=== PATIENT | male | born 1960 | race Caucasian/White ===

== ENCOUNTER 2018-02-18 06:26 | Emergency (ER) | payer BC, OTHER ==
[~2018-02-18] VITALS: Ht 170.2 cm; Wt 108.9 kg
[2018-02-18] MEDS ORDERED: DECADRON IH STA (06:49)
[2018-02-18] MEDS ORDERED: SOLU-MEDROL IV STA (06:49)
[2018-02-18] MEDS ORDERED: DUONEB 0.5 MG-3 MG/3 ML SOLN IH STA (06:49)
[2018-02-18] MEDS ORDERED: DECADRON ONE (06:50)
[2018-02-18] MEDS ORDERED: DUONEB 0.5 MG-3 MG/3 ML SOLN IH ONE (06:50)
[2018-02-18 06:51] VITALS: BP 149/97
--- NOTE | 2018-02-18 06:52 | NUR ---
ARRIVAL PATIENT ARRIVED VIA POV WITH COMPLAINTS OF SHORTNESS OF BREATH AND FEVER X3 DAYS LUNGS COURSE AND DIMINISHED IN LOWER LOBES
--- NOTE | 2018-02-18 06:55 | ER.PDOC ---
General Chief Complaint: Dyspnea/Respdistress Stated Complaint: FEVER,COUGHING,SOB Time seen by MD: 06:45 Source: patient Exam Limitations: no limitations History of Present Illness Initial Comments Pt started coughing three days ago, SOB, no expectoration Severity: moderate Activities at Onset: none Prior Episodes/Possible Cause: no prior episodes Modifying Factors: improves with activity Associated Symptoms: cough Allergies: Coded Allergies: No Known Allergies (Unverified , 02/18/18) Vital Signs Vital Signs Date Time Temp Pulse Resp B/P (MAP) Pulse Ox O2 Delivery O2 Flow Rate FiO2 02/18/18 08:11 116 20 94 Room Air 02/18/18 06:51 98.9 149/97 (114) Allergies Coded Allergies Type Severity Reaction Last Updated Verified No Known Allergies 02/18/18 No Past Medical History Medical History: COPD, hypertension Surgical History: appendectomy, other Social History Smoking: non-smoker Drug Use: none Reviewed Nursing Reviewed: Vital Signs, Abn. Noted, Nursing Assessment Review of Systems Constitutional: no symptoms reported EENTM: no symptoms reported Respiratory: see HPI, cough, shortness of breath, wheezing Cardiovascular: no symptoms reported Gastrointestinal: no symptoms reported Genitourinary: no symptoms reported Musculoskeletal: no symptoms reported Skin: no symptoms reported Psychiatric/Neurological: no symptoms reported Endocrine: no symptoms reported Hematologic/Lymphatic: no symptoms reported Physical Exam General Appearance: No Apparent Distress, WD/WN HEENT: PERRL/EOMI, Normal ENT Inspection, TMs Normal, Pharynx Normal Neck: Non-Tender, Full Range of Motion, Supple, Normal Inspection Respiratory: no respiratory distress, prolonged expirations, wheezing, expiration, inspiration Cardiovascular: Normal Peripheral Pulses, Regular Rate, Rhythm, No Edema, No Gallop, No JVD, No Murmur Gastrointestinal: Normal Bowel Sounds, No Organomegaly, No Pulsatile Mass, Non Tender, Soft Extremities: Normal Range of Motion, Non-Tender, Normal Inspection, No Pedal Edema, No Calf Tenderness, Normal Capillary Refill Neurologic/Psychiatric: gang sawyer II-XII NML as Tested, No Motor/Sensory Deficits, Alert, Normal Mood/Affect, Oriented x 3 Skin: Normal Color, Warm/Dry Lymphatic: No Adenopathy Results/Orders Results/Orders Laboratory Tests Test 02/18/18 06:58 White Blood Count 9.2 10^3/uL (4.5-11.0) Red Blood Count 5.17 10^6/uL (4.50-5.90) Hemoglobin 15.5 g/dL (13.9-16.3) Hematocrit 46.4 % (37.0-53.0) Mean Corpuscular Volume 89.7 fL (78-100) Mean Corpuscular Hemoglobin 30.0 pg (26-34) Mean Corpuscular Hemoglobin Concent 33.4 g/dL (33-37) Red Cell Distribution Width 13.8 % (11.5-14.5) Platelet Count 267 10^3/uL (150-400) Mean Platelet Volume 10.2 fL (7.8-11.0) Neutrophils (%) (Auto) 50.4 % (41.0-85.0) Lymphocytes (%) (Auto) 31.0 % (24.0-44.0) Monocytes (%) (Auto) 13.1 % (5.0-12.0) Neutrophils # (Auto) 4.6 10^3/uL (1.8-7.7) Lymphocytes # (Auto) 2.9 10^3/uL (1.0-4.8) Monocytes # (Auto) 1.2 10^3/uL (0.3-0.8) Absolute Immature Granulocyte (auto 0.02 10^3 u/L (0-2) Eosinophils % 4.6 % (0.0-5.0) Basophils % 0.7 % (0.0-0.2) Basophils # 0.1 10^3/uL (0.0-0.1) Eosinophil Count 0.4 10^3/uL (0.0-0.2) Sodium Level 138 mmol/L (132-145) Potassium Level 3.5 mmol/L (3.6-5.2) Chloride Level 105.0 mmol/L (96-109) Carbon Dioxide Level 21.6 mmol/L (20.0-32) Anion Gap 14.9 Blood Urea Nitrogen 19 mg/dL (7-18) Creatinine 1.32 mg/dL (0.59-1.40) Estimated GFR () 67.6 (>/=60) BUN/Creatinine Ratio 14.0 Glucose Level 101 mg/dL (70-110) Calcium Level 8.8 mg/dL (8.4-10.5) Total Bilirubin 0.7 mg/dL (0.2-1.0) Aspartate Amino Transf (AST/SGOT) 25 U/L (0-35) Alanine Aminotransferase (ALT/SGPT) 26 U/L (12-78) Alkaline Phosphatase 79 U/L (50-136) Troponin I < 0.02 ng/mL (0.00-0.05) Pro-B-Type Natriuretic Peptide 68 pg/mL (0-125) Total Protein 7.2 g/dL (6.4-8.2) Albumin 3.5 g/dL (3.4-5.0) Globulin 3.7 Percent Immature Gran (Cell Imm) 0.20 % (0.00-0.50) Administered Medications Medications (Trade) Dose Ordered Sig/Mia Route PRN Reason Start Time Stop Time Status Last Admin Dose Admin Albuterol/ Ipratropium (Duoneb 0.5 Mg-3 Mg/3 ml Soln) 3 ml STAT STAT IH 02/18/18 06:49 02/18/18 06:52 DC 02/18/18 07:13 Dexamethasone Sodium Phosphate (Decadron) 4 mg STAT STAT IH 02/18/18 06:49 02/18/18 06:52 DC 02/18/18 07:13 Methylprednisolone Sodium Succinate (Solu-Medrol) 125 mg STAT STAT IV 02/18/18 06:49 02/18/18 06:52 DC 02/18/18 06:54 Progress Progress Met with patient for first time. States breathing treatment helped some. Rare wheeze on exam. Pulse ox 92% RA EKG/XRAY/CT/US EKG: rhythm (sinus tachycardia at 109), NC (nl), QRS (nl), no ST T wave changes XRAY: chest XRAY Comments: atalectasis, no obv infiltrate Departure Time of Disposition: 07:21 Disposition: 01 HOME, SELF-CARE Impression: Primary Impression: Bronchitis Condition: Improved Patient Instructions: Acute Bronchitis, [id number] Referrals: PCP,UNKNOWN (PCP) PRIMARY CARE PROVIDER Additional Instructions: [facility] know [facility] you are [facility] to determine if they want to go forward with you proceedure on the Comments Discussed lab and XR with patient and plan of action. Understood Duration or Time Spent with Pa: 30 RJ RDZ MD Feb 18, 2018 06:54 DOMINICK OLIVERA MD Feb 18, 2018 07:23
--- NOTE | 2018-02-18 06:59 | PCM.EKG ---
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
[2018-02-18] MEDS ORDERED: NS 1000ML 1,000 ML IV ONE (07:00)
[2018-02-18] MEDS ORDERED: SOLU-MEDROL ONE (07:03)
[2018-02-18 07:04] LABS: BASOPHIL # 0.1 10^3/uL (0.0-0.1); BASOPHIL % 0.7 % (0.0-0.2); EOSINOPHIL # 0.4 10^3/uL (0.0-0.2); EOSINOPHIL % 4.6 % (0.0-5.0); HEMOGLOBIN 15.5 g/dL (13.9-16.3); LYMPHOCYTES # 2.9 10^3/uL (1.0-4.8); MEAN CELL HGB CONCENTRATION 33.4 g/dL (33-37); MEAN CORP VOLUME 89.7 fL (78-100); MEAN PLATELET VOLUME 10.2 fL (7.8-11.0); MONOCYTES # 1.2 10^3/uL (0.3-0.8); MONOCYTES % 13.1 % (5.0-12.0); NEUTROPHIL # 4.6 10^3/uL (1.8-7.7); NEUTROPHILS % 50.4 % (41.0-85.0); RED CELL DISTRIBUTION WIDTH 13.8 % (11.5-14.5); WHITE BLOOD CELL 9.2 10^3/uL (4.5-11.0)
[2018-02-18 07:25] LABS: ALANINE AMINOTRANSFERASE(ML) 26 U/L (12-78); ALKALINE PHOSPHATASE 79 U/L (50-136); ASPARTATE AMINO TRANSFERASE 25 U/L (0-35); CALCIUM 8.8 mg/dL (8.4-10.5); CARBON DIOXIDE 21.6 mmol/L (20.0-32); GLUCOSE 101 mg/dL (70-110)
--- NOTE | 2018-02-18 07:42 | DIREP ---
PROCEDURE:CHEST 1 VIEW COMPARISON:None. INDICATIONS:sob FINDINGS: LUNGS/PLEURA:Streaky opacities in the left lung base may represent atelectasis or developing infiltrate. Otherwise, no confluent pulmonary infiltrate. No effusions. No pneumothorax. VASCULATURE:Unremarkable pulmonary vasculature. CARDIAC:No cardiac silhouette abnormality or cardiomegaly. MEDIASTINUM:No visible mass or adenopathy. BONES:No fracture or visible bony lesion. OTHER:Negative. CONCLUSION: 1. Streaky opacities in the left lung base may represent atelectasis or developing infiltrate. Dictated by: Natalie Carreon MD on 02/18/2018 at 07:40 AM
[2018-02-18 08:11] VITALS: BP 149/97
== END 2018-02-18 07:48 | disposition home or self-care (01) ==
LOC: ER 06:26
DX: J40 Bronchitis, not specified as acute or chronic (principal); I10 Essential (primary) hypertension; Z90.49 Acquired absence of other specified parts of digestive tract
CPT/HCPCS: 36415; 71045; 80053; 83880; 84484; 85025; 93005; 94640; 96374; 99285; J1100; J2930; J7620